=== PATIENT | male | born 1990 | race African-American/Black ===

== ENCOUNTER 2023-04-25 13:32 | Emergency (ER) | payer SELFPAY ==
[~2023-04-25] VITALS: Ht 172.7 cm; Wt 86.2 kg
[2023-04-25 13:44] VITALS: O2SAT 99
[2023-04-25] MEDS ORDERED: METHOCARBAMOL 500MG TABLET PO ONE (14:45)
[2023-04-25] MEDS ORDERED: KETOROLAC 60MG/2ML VIAL IM ONE (14:45)
[2023-04-25] MEDS ORDERED: METH-653 MT (16:35)
[2023-04-25] MEDS ORDERED: IBUP-2029 MT (16:35)
[2023-04-25 18:30] VITALS: BP 127/70; PULSE 72; RESP 18; TEMP 98.7
== END 2023-04-25 18:32 | disposition home or self-care (01) ==
LOC: ER 13:32
DX: M54.50 Low back pain, unspecified (principal); M79.10 Myalgia, unspecified site; V89.2XXA Person injured in unspecified motor-vehicle accident, traffic, initial encounter; Y93.89 Activity, other specified; Y92.89 Other specified places as the place of occurrence of the external cause; Y99.8 Other external cause status
CPT/HCPCS: 72125; 72128; 96372; 99285; J1885; Z7610